=== PATIENT | female | born 2000 | race Two or more races ===

== ENCOUNTER 2020-07-03 01:26 | Emergency (ER) | payer BC, SELFPAY ==
[2020-07-03 01:34] VITALS: BP 124/89; PULSE 120; RESP 22; TEMP 36.9; O2SAT 100
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
[2020-07-03] MEDS: LORazepam (*CRX) 0.5 MG TABLET 1 MG PO (03:08)
[2020-07-03 03:15] VITALS: BP 124/71; PULSE 79; RESP 18; O2SAT 97
== END 2020-07-03 03:56 | disposition home or self-care (01) ==
PROVIDERS: Emergency Provider Emergency Medicine
DX: F41.9 Anxiety disorder, unspecified (principal)
CPT/HCPCS: 99283; A9270